=== PATIENT | male | born 1995 | race Caucasian/White ===

== ENCOUNTER 2021-02-07 20:00 | Outpatient (CLI) | payer OTHER, SELFPAY | END 2021-02-07 20:01 | disposition home or self-care (01) | PROVIDERS: Visit Provider Family Medicine | DX: R06.83 Snoring (principal); R53.83 Other fatigue; G47.33 Obstructive sleep apnea (adult) (pediatric) | CPT/HCPCS: 95810 ==

== ENCOUNTER 2022-01-30 20:00 | Outpatient (CLI) | payer OTHER, SELFPAY | END 2022-01-30 20:01 | disposition home or self-care (01) | LOC: SLEEP 01-31 08:37 | PROVIDERS: Visit Provider Family Medicine | DX: G47.33 Obstructive sleep apnea (adult) (pediatric) (principal) | CPT/HCPCS: 95811 ==

== ENCOUNTER 2022-02-14 20:57 | Emergency (ER) | payer OTHER, SELFPAY ==
[2022-02-14 21:01] VITALS: BP 167/118; PULSE 69; RESP 18; TEMP 36.9; O2SAT 99
[2022-02-14 21:20] LABS: Basophils % 0.5 %; Eosinophils # 0.2 10^3/uL (0.0-0.8); Eosinophils % 2.5 %; Hematocrit 48.5 % (42.0-52.0); Hemoglobin 16.6 g/dL (11.7-16.6); Lymphocytes # 1.3 10^3/uL (0.8-4.8); Mean Corpuscular HGB Conc 34.2 g/dL (30.0-36.0); Mean Corpuscular Hemoglobin 28.7 pg (28.0-34.0); Mean Corpuscular Volume 83.9 fl (80-94); Mean Platelet Volume 12.3 fL (7.4-10.4); Monocytes # 0.4 10^3/uL (0.2-0.9); Monocytes % 6.6 %; Neutrophils # 4.46 10^3/uL (1.8-7.7); Neutrophils % 70.1 %; Nucleated Red Blood Cells % 0 %; Platelet Count 174 10^3/cmm (130-400); Red Blood Count 5.78 10^6/uL (4.1-5.3); Red Cell Distribution Width 12.9 % (12.1-15.1); White Blood Count 6.4 10^3/uL (4.0-10.0)
[2022-02-14 21:39] LABS: Alanine Aminotransferase 19 U/L (0-41); Albumin Level 4.9 g/dL (3.5-5.2); Alkaline Phosphatase 94 IU/L (40-130); Aspartate Amino Transferase 17 U/L (0-40); Blood Urea Nitrogen 15 mg/dL (6-20); Calcium 9.7 mg/dL (8.5-10.5); Carbon Dioxide 27 mmol/L (22-29); Chloride 101 mmol/L (98-107); Globulin 2.5 g/dL (1.3-4.6); Glomerular Filtration Rate 80.9 mL/min (90-130); Glucose 185 mg/dL (65-115); Lipase 15 U/L (13-60); Osmolality Calculated 294 mOsm/kg (285-295); Sodium 139 mmol/L (136-145); Total Bilirubin 0.5 mg/dL (0.15-1.2); Total Protein 7.4 g/dL (6.6-8.7)
[2022-02-14 22:00] VITALS: BP 119/81
--- NOTE | 2022-02-14 22:14 | CTR_ITS ---
PROCEDURE INFORMATION: Exam: CT Abdomen And Pelvis Without Contrast Exam date and time: 02/14/2022 10:26 PM Age: 27 years old Clinical indication: Abdominal pain; Localized; Left lower quadrant (llq); Patient HX: C/O left flank/llq pain starting today. ; Additional info: Flank pain TECHNIQUE: Imaging protocol: Computed tomography of the abdomen and pelvis without contrast. Radiation optimization: All CT scans at this facility use at least one of these dose optimization techniques: automated exposure control; mA and/or kV adjustment per patient size (includes targeted exams where dose is matched to clinical indication); or iterative reconstruction. COMPARISON: No relevant prior studies available. RADIATION DOSE METRICS: Total DLP (mGy-cm): 1402.7 FINDINGS: Lungs: The lung bases appear unremarkable. Liver: The liver is unremarkable in appearance. Gallbladder and bile ducts: No calcified gallstones in the gallbladder. No gallbladder wall thickening. No pericholecystic fluid. No biliary dilatation. Pancreas: The pancreas is normal in appearance. No pancreatic duct dilatation. Spleen: The spleen is normal in size and appearance. Adrenal glands: The adrenal glands appear within normal limits. Kidneys and ureters: Mild left hydroureteronephrosis. There is a 4 mm distal left ureteral calculus. Findings are consistent with left obstructive uropathy. Right kidney and right ureter are normal in appearance. Stomach and bowel: No acute gastric abnormality demonstrated. The small bowel is unremarkable as demonstrated. No acute abnormality/inflammatory change of the colon. Appendix: The appendix is normal in appearance. No evidence of appendicitis. Intraperitoneal space: No pneumoperitoneum. No significant fluid collection. Vasculature: No abdominal aortic aneurysm. Lymph nodes: No pathologically enlarged lymph nodes are demonstrated. Urinary bladder: Urinary bladder is almost completely empty. The bladder appears unremarkable as demonstrated. Reproductive: The prostate and the scrotal contents appear unremarkable as demonstrated. Bones/joints: Unremarkable. No acute osseous abnormality. Soft tissues: The soft tissues appear unremarkable. CT/CT kidney stone [id number] IMPRESSION: Mild left hydroureteronephrosis. There is a 4 mm distal left ureteral calculus. Findings are consistent with left obstructive uropathy.
--- NOTE | 2022-02-14 22:19 | W.ED.MALEGU ---
HPI - Male Genitourinary General: Chief complaint: Back Pain/Injury Stated complaint: Severe back pain-lower left Time Seen by Provider: 02/14/22 22:10 Source: patient Mode of arrival: ambulatory Limitations: no limitations History of Present Illness: 27-year-old male who states that he had an episode of left flank pain last week that lasted a short amount of time he states that he had returned and then this morning started having pain at 10 and is got much worsening. He states pain is severe in nature rates it a 9 out of 10 he has had nausea with the pain denies any vomiting he denies any worsening improving factors states he feels like the pain is just on the inside no history of kidney stones. Associated symptoms: Reports nausea; Deny dysuria or vomiting Review of Systems Const: Denies: fever(s), chills, body aches or change in appetite Eyes: Denies: blurry vision or eye discomfort ENMT: Denies: throat pain or dental pain Card: Denies: chest pain Resp: Denies: dyspnea GI: Reports: nausea; Denies: abdominal pain, vomiting or diarrhea : Reports: flank pain and difficulty urinating; Denies: dysuria Musc: Denies: neck pain or back pain Skin/Breast: Denies: rash Neuro: Denies: headache(s) Psych: Denies: depression Jesús/Lymph: Denies: easy bruising All/Imm: Denies: urticaria PFSH ED PFSH: Medical History (Updated 02/14/22 @ 23:16 by Arnie Rea MD) Hypertension Social History (Updated 02/14/22 @ 22:20 by Arnie Rea MD) Substance/Drug Use: never Physical Exam Const: COMMON NORMALS: no acute distress, patient oriented x3 and healthy appearing HENMT: COMMON NORMALS: normocephalic and atraumatic HEAD & SCALP: normocephalic and atraumatic Eye: COMMON NORMALS: Equal, round and reactive pupils present and EOMs intact bilaterally PUPIL: Yes Equal, round and reactive pupils present Neck/C-Spine: COMMON NORMALS: full ROM and supple Chest: COMMONS NORMALS: normal inspection of the chest and normal palpation of entire chest wall Resp: COMMON NORMALS: normal respiratory effort, No retractions, No use of accessory muscles and clear to auscultation bilaterally AUSCULTATION: clear to auscultation bilaterally Cardio: COMMON NORMALS: regular rate, regular rhythm and No murmurs present (Cardio) RATE: regular rate RHYTHM: regular rhythm GI: COMMON NORMALS: Normal to inspection, nondistended, normoactive bowel sounds present, Soft to palpation, non-tender and no masses PALPATION: Yes Soft to palpation Extremity: COMMON NORMALS: normal to inspection and full ROM Neuro: COMMON NORMALS: patient oriented x3, moves all extremities and no focal motor deficits Psych: COMMON NORMALS: mental status grossly normal, Normal thought process present and cooperative THOUGHT PROCESS: Normal thought process present Skin: COMMON NORMALS: no rashes or lesions noted and no wounds GENERAL SKIN EXAM: no rashes or lesions noted Course Vital Signs: Vital signs: Vital Signs Temperature 98.5 F 02/14/22 21: Pulse Rate 69 02/14/22 21:01 Respiratory Rate 16 02/14/22 22:41 Blood Pressure 167/118 02/14/22 21:01 Pulse Oximetry 98 02/14/22 22:41 MDM - Male Medical Decision Making Patient presents here with kidney stone will discharge with a strainer his pain is much improved here he is to follow-up with urology should be able passed a stone at home. Lab Data : 02/14/22 21:09 02/14/22 21:09 Radiology Impressions Abdomen/Pelvis CT 02/14/22 22:14 IMPRESSION: Mild left hydroureteronephrosis. There is a 4 mm distal left ureteral calculus. Findings are consistent with left obstructive uropathy. Laboratory Results WBC 6.4 10^3/uL (4.0-10.0) 02/14/22 21:09 RBC 5.78 10^6/uL (4.1-5.3) H 02/14/22 21:09 Hgb 16.6 g/dL (11.7-16.6) 02/14/22 21:09 Hct 48.5 % (42.0-52.0) 02/14/22 21:09 MCV 83.9 fl (80-94) 02/14/22 21:09 MCH 28.7 pg (28.0-34.0) 02/14/22 21:09 MCHC 34.2 g/dL (30.0-36.0) 02/14/22 21:09 RDW 12.9 % (12.1-15.1) 02/14/22 21:09 Plt Count 174 10^3/cmm (130-400) 02/14/22 21:09 MPV 12.3 fL (7.4-10.4) H 02/14/22 21:09 Neut % (Auto) 70.1 % 02/14/22 21:09 Lymph % (Auto) 20.0 % 02/14/22 21:09 Maries % (Auto) 6.6 % 02/14/22 21:09 Eos % (Auto) 2.5 % 02/14/22 21:09 Baso % (Auto) 0.5 % 02/14/22 21:09 Neut # (Auto) 4.46 10^3/uL (1.8-7.7) 02/14/22 21:09 Lymph # (Auto) 1.3 10^3/uL (0.8-4.8) 02/14/22 21:09 Maries # (Auto) 0.4 10^3/uL (0.2-0.9) 02/14/22 21:09 Eos # (Auto) 0.2 10^3/uL (0.0-0.8) 02/14/22 21:09 Baso # (Auto) 0.0 10^3/uL (0.0-0.1) 02/14/22 21:09 Nucleated RBC % (auto) 0 % 02/14/22 21:09 Nucleated RBCs # 0.0 /100WBC 02/14/22 21:09 Sodium 139 mmol/L (136-145) 02/14/22 21:09 Potassium 4.0 mmol/L (3.5-5.1) 02/14/22 21:09 Chloride 101 mmol/L (98-107) 02/14/22 21:09 Carbon Dioxide 27 mmol/L (22-29) 02/14/22 21:09 Anion Gap 15.0 (5-19) 02/14/22 21:09 BUN 15 mg/dL (6-20) 02/14/22 21:09 Creatinine 1.1 mg/dL (0.7-1.2) 02/14/22 21:09 GFR Calculation 80.9 mL/min (90-130) L 02/14/22 21:09 Glucose 185 mg/dL (65-115) H 02/14/22 21:09 Calculated Osmolality 294 mOsm/kg (285-295) 02/14/22 21:09 Calcium 9.7 mg/dL (8.5-10.5) 02/14/22 21:09 Total Bilirubin 0.5 mg/dL (0.15-1.2) 02/14/22 21:09 AST 17 U/L (0-40) 02/14/22 21:09 ALT 19 U/L (0-41) 02/14/22 21:09 Alkaline Phosphatase 94 IU/L (40-130) 02/14/22 21:09 Total Protein 7.4 g/dL (6.6-8.7) 02/14/22 21:09 Albumin 4.9 g/dL (3.5-5.2) 02/14/22 21:09 Globulin 2.5 g/dL (1.3-4.6) 02/14/22 21:09 Lipase 15 U/L (13-60) 02/14/22 21:09 Discharge Plan Discharge Patient Disposition: Home Clinical Impression: Kidney stone on left side Prescriptions: New hydrocodone-acetaminophen 5-325 mg tablet 1 tab PO Q6H PRN (Reason: pain) Qty: 14 0RF ondansetron 4 mg tablet,disintegrating 4 mg PO Q6H PRN (Reason: nausea and vomiting) Qty: 14 0RF Discharge Orders: Discharge ED (Routine); Ordered 02/14/22 Ordered By: Arnie Rea Referrals: Rodger Alonzo MD [Physician] - 1-3 days Discharge Diet: Advance as tolerated Discharge Activity: Resume usual activity Patient Instructions: Kidney Stones (ED), How to Strain Your Urine (ED), Opioid Safety Coding Level of Care Code ED Nuclear Criticality Safety Engineer for Chg Fwd Exam Comprehensive
[2022-02-14 22:41] VITALS: RESP 16; O2SAT 98
[2022-02-14] MEDS: ondansetron 2 mg/ML SDV 2 mL 4 MG IVP (22:41)
[2022-02-14] MEDS: HYDROmorphone 1 mg/mL INJ 1 mL IVP (22:41)
[2022-02-14] MEDS: sodium chloride 0.9% 1,000 ML 999 ML IV (22:42)
[2022-02-14 22:50] VITALS: BP 148/78; PULSE 64; O2SAT 97
[2022-02-14 23:00] VITALS: BP 138/79; PULSE 58; O2SAT 96
[2022-02-14] MEDS: HYDROcodone-acetaminophen 5-325 mg Tablet 2 TAB PO (23:39)
[2022-02-14 23:58] VITALS: BP 131/63; PULSE 60; RESP 16; O2SAT 96
--- NOTE | 2022-02-15 12:53 | DCPLANNER ---
Addendum entered by Kera Wong 02/23/22 07:31: Patient had a follow up appointment scheduled for 02.22.[address] Alonzo - patient did attend appointment. Original Note: process manager had message to schedule a follow up appointment for patient with urology. process manager sent patients information to the front office staff at urology. Patients information will be printed and reviewed. Clinic will call patient with appointment information.
== END 2022-02-14 23:50 | disposition home or self-care (01) ==
PROVIDERS: Emergency Medicine; Emergency Provider Emergency Medicine
DX: N20.0 Calculus of kidney (principal)
CPT/HCPCS: 74176; 80053; 83690; 85025; 96374; 96375; 99284; J1170; J2405; J7030

== ENCOUNTER 2022-02-22 07:04 | Outpatient (CLI) | payer OTHER, SELFPAY ==
--- NOTE | 2022-02-22 07:30 | XR_ITS ---
WS: [id number] Exam: XR KUB [id number] Date/Time of Exam: 02/22/2022 7:30 AM Reason For Exam: STONES No bowel obstruction or free air. Visualized organ margins are intact. Bony structures appear normal. 2 mm nonspecific left pelvic calcification noted. XR/XR KUB [id number] IMPRESSION: 1. No acute abdominal finding.
== END 2022-02-22 07:05 | disposition home or self-care (01) ==
PROVIDERS: Visit Provider Urology
DX: N20.0 Calculus of kidney (principal)
CPT/HCPCS: 74018; 99202

== ENCOUNTER 2022-02-28 09:34 | Day surgery (SDC) | payer OTHER, SELFPAY ==
--- NOTE | 2022-02-28 | SCC_ITS ---
Procedure done: 1. Cystoscopy, LEFT retrograde ureteropyelogram 2. Left ureteroscopy stone manipulation stent placement 41.6 seconds of fluoroscopic guidance, for a cumulative dose of 8.57 mGy, was provided to Dr. Alonzo by the radiology department. C-arm images of the abdomen were saved for the patient's permanent record. [facility]
--- NOTE | 2022-02-28 06:38 | W.PM.OPSUD ---
Surgery/Procedure H&P Update DATE OF PROCEDURE: February 28, 2022 DATE H&P PERFORMED: 02/22/22 H&P UPDATE INFORMATION: I have reviewed H&P completed within last 30 days, I have examined patient prior to procedure, No changes to prior documentation and H&P is in [facility] EMR on date indicated CHANGES TO PREVIOUS DOCUMENTATION: Unaware of having passed the stone. Had pain last night. Had experienced 4 or more days without pain prior to last night's increasing symptoms. PLANNED PROCEDURE: Operation Date: 02/28/22 11:05 Proposed Procedures p CYSTOSCOPY LEFT RETROGRADE URETEROSCOPY LASER STENT [id number] [facility] 26 [address]81,N20.1,N23(Not Applicable) - Rodger Alonzo MD s Retrograde Pyelogram(Left) - Rodger Alonzo MD s Laser Lithotripsy(Left) - Rodger Alonzo MD s Ureteral Stent Placement(Left) - Rodger Alonzo MD
--- NOTE | 2022-02-28 09:59 | SC_ITS ---
WS: [id number] C-arm fluoroscopy for left ureteral stent placement, 02/28/2022 Clinical Data: Left ureteral calculus Comparison: None. Findings: Dr. Alonzo inserted a left ureteral stent. SC/C-arm FL for Urology Impression: Left ureteral stent.
--- NOTE | 2022-02-28 09:59 | XR_ITS ---
WS: [id number] KUB, AP view, 02/28/2022 Clinical Data: Refractory left distal ureteral stone Comparison: KUB, 02/22/2022. Findings: No abnormal intraabdominal masses or calcifications are seen. There is no dilatated small bowel or ev idence of obstruction. The small left 2 pelvic calcification has not changed. There is a slight dextroscoliosis. XR/XR KUB [id number] Impression: Negative KUB.
[2022-02-28 10:32] VITALS: BMI 28.7
[2022-02-28] MEDS: sodium chloride 0.9% 1,000 ML 30 ML IV (10:49)
[2022-02-28] MEDS: levofloxacin-dextrose 5 % 500 MG/100 ML PREMIX 100 MG IV (11:02)
--- NOTE | 2022-02-28 11:31 | ANES.PREANE2 ---
Pre-Anesthetic Assessment Height/Weight: Height 1.8 m Weight 93.44 kg Preop Diagnosis: Refractory left distal ureteral stone/renal colic Operation Date: 02/28/22 11:05 Proposed Procedures p CYSTOSCOPY LEFT RETROGRADE URETEROSCOPY LASER STENT 04646 [facility] 26 [address]6661,N20.1,N23(Not Applicable) - Rodger Alonzo MD s Retrograde Pyelogram(Left) - MD gilma Alonzo Laser Lithotripsy(Left) - MD gilma Alonzo Ureteral Stent Placement(Left) - Rodger Alonzo MD Familial anesthetic complications: None Was Beta Corey taken within 24 hours: N/A Was Clonidine taken within 24 hours: N/A Last intake: Intake Last Liquid Date 02/27/22 Last Liquid Time 17:00 Last Solid Date 02/27/22 Last Solid Time 17:00 Social Tobacco and No alcohol Exam alert, oriented x 3, clear to auscultation bilaterally and regular rate & rhythm Airway Submandibular: within normal limits Cervical ROM: within normal limits Mallampati: Class II Dentition: full Comments: Comments: vasquez CV/HEM Hypertension Anesthetic Plan ASA status: 2 Anesthesia: General Medications/Allergies Home Medications Medication Instructions Recorded Confirmed Last Taken Type ondansetron 4 mg disintegrating 4 mg PO Q6H PRN #14 tab 02/14/22 02/28/22 02/27/22 Rx tablet cholecalciferol (vitamin D3) 10 10 mcg PO DAILY 02/22/22 02/28/22 Unknown History mcg (400 unit) capsule hydrochlorothiazide 25 mg tablet 12.5 mg PO DAILY tab 02/22/22 02/28/22 02/27/22 History hydrocodone 5 mg-acetaminophen 325 1 tab PO Q6H PRN 3 Days #20 tab 02/22/22 02/28/22 02/27/22 Rx mg tablet tamsulosin 0.4 mg capsule 0.4 mg PO QDAY #14 cap 02/22/22 02/28/22 02/27/22 Rx Allergies Allergy/AdvReac Type Severity Reaction Status Date / Time No Known Allergies Allergy Verified 02/28/22 10:26 Current Medications Generic Name Dose Route Start Last Admin Trade Name Freq PRN Reason Stop Dose Admin Sodium Chloride 1,000 mls @ 30 mls/hr 02/28/22 10:00 02/28/22 10:49 Sodium Chloride 0.9% IV 03/01/22 09:59 30 mls/hr .Q24H SADE Administration PFSH Anesthesia Medical History (Updated 02/22/22 @ 08:23 by Rodger Alonzo MD) Hypertension Family History (Updated 02/22/22 @ 07:52 by Marissa Givens LPN) Father Hypertension Diabetes Stroke CAD (coronary artery disease) Mother Hypertension CAD (coronary artery disease) Social History (Updated 02/22/22 @ 07:53 by Marissa Givens LPN) Smoking and tobacco status: current every day smoker Alcohol intake: current Alcohol intake frequency: few times a month Marital status: Current occupational status: employed History of recent travel: No Data Anesthesia Cardiac Studies: No Data to Display
--- NOTE | 2022-02-28 11:44 | PM.OP ---
Operative Report Date of procedure: February 28, 2022 Pre-op diagnosis: Refractory left distal ureteral stone/renal colic Post-op diagnosis: Refractory left distal ureteral stone/renal colic Procedure done: 1. Cystoscopy, LEFT retrograde ureteropyelogram 2. Left ureteroscopy stone manipulation stent placement Specimens removed/disposition: Stone Pathology: Stone Surgeon: Clinton Anesthesia: General Complications: None Findings: Stone in the expected position There was a very narrowed area distal to the stone the required high-pressure dilation in order to get access with the scope. The stone was actually small enough to withdraw over the grasping forcep once the dilation was completed Brief History: After routine preoperative evaluation examination and obtaining of informed consent he was taken to the operating suite on 02/28/2022 where general anesthesia was administered without difficulty after appropriate timeout was performed, SCDs confirmed to be functioning, preoperative antibiotics administered, beta-shanna protocol confirmed. Prepped and draped in the usual sterile fashion in dorsolithotomy position paying careful attention to avoiding pressure points. 21 Swedish cystoscope with 30 degree lens was introduced into the urethra meatus and advanced into the bladder under videoscopy. The bladder was systematically examined and found to be within normal limits. No stone was seen. An 8 Swedish cone-tip catheter was intubated into the left ureteral orifice for left retrograde ureteropyelogram which demonstrated narrowed distal ureter, filling defect consistent with a stone, and ureter proximal to the stone with moderate dilation. The stone was located in the expected position based on CT and prior KUBs. A flexible tip guidewire was then easily advanced up the left ureter bypassing the stone curling in the area of the upper pole calyx. The distal ureter was then dilated with a 15 Swedish 4 cm balloon. There was a distinctly narrowed area that required almost 20 jan of pressure in order to dilate for the full diameter of the balloon. The pressure was reduced to 4 jan and remained in place for about 4 minutes at which point the balloon was deflated and removed. The wire was secured to the drapes as a safety wire and the 7 Swedish offset semirigid ureteroscope was easily advanced up the right ureter beyond the area of previous narrowing to the stone which was secured in grasping forceps and removed with absolutely no tension. The stone was dropped into the bladder. The scope was passed again no additional stone fragments were seen. Because of the high-pressure dilation required it was decided to leave a stent indwelling. The cystoscope was then backloaded over the guidewire and a 6 Swedish by 30 cm double-pigtail stent was advanced over the guidewire through the cystoscope into appropriate position as confirmed via fluoroscopy and cystoscopy. Stent was confirmed to be draining. The stone was flushed from the bladder. It was sent for pathologic evaluation. The bladder was drained and the procedure was completed. He tolerated the procedure well without complications and was awakened in the operating room and returned to the recovery room in stable condition. PLANS: 1. Anticipate discharge from outpatient surgery 2. Follow-up next week for cystoscopy and stent removal. He will need some time of healing because of the distinctly narrowed area requiring high-pressure dilation.
[2022-02-28 11:55] VITALS: BP 106/72; PULSE 53; RESP 18; TEMP 36.2; O2SAT 96
[2022-02-28 12:00] VITALS: BP 120/72; PULSE 70; RESP 16; O2SAT 99
[2022-02-28 12:05] VITALS: BP 130/81; PULSE 72; RESP 16; O2SAT 96
[2022-02-28 12:10] VITALS: BP 128/81; PULSE 70; RESP 16; TEMP 36.3; O2SAT 96
[2022-02-28 12:25] VITALS: BP 132/76; PULSE 78; RESP 18; TEMP 36.8; O2SAT 96
[2022-02-28 12:58] VITALS: BP 147/94; PULSE 62; RESP 18; O2SAT 99
--- NOTE | 2022-02-28 14:16 | ANE.PACU2 ---
Inpatient post-anesthesia follow up: Airway intact: Yes Vital signs: Temperature 98.3 F Pulse Rate 62 Respiratory Rate 18 Blood Pressure 147/94 Pulse Oximetry 99 Oxygen Delivery Me thod Room Air Oxygen Flow Rate 6 Fraction of Inspir ed Oxygen Hydration adequate: Yes Nausea and vomiting: No Pain level: 2 Mental status: Baseline
[2022-03-04 10:57] LABS: Stone Source LEFT URETER
== END 2022-02-28 13:07 | disposition home or self-care (01) ==
PROVIDERS: PCP Family Medicine; Visit Provider Urology
PROC: 0TJB8ZZ Inspection of Bladder, Via Natural or Artificial Opening Endoscopic (ICD-10-PCS; CPT 52000; principal; 2022-02-28 10:45)
PROC: (CPT 74420; 2022-02-28 10:45)
PROC: (CPT 50605; 2022-02-28 10:45)
PROC: (CPT 52332; 2022-02-28 10:45)
DX: N20.1 Calculus of ureter (principal); N23 Unspecified renal colic; I10 Essential (primary) hypertension; F17.200 Nicotine dependence, unspecified, uncomplicated; Z82.49 Family history of ischemic heart disease and other diseases of the circulatory system; Z83.3 Family history of diabetes mellitus; Z82.3 Family history of stroke
CPT/HCPCS: 52332; 52352; 74018; 76000; 82365; 88300; C2625; J1100; J1956; J2250; J2405; J2704; J3010; J7030

== ENCOUNTER → 2022-03-09 07:21 | Outpatient (BNVA) | payer OTHER, SELFPAY | PROVIDERS: PCP Family Medicine; Visit Provider Urology | DX: N20.1 Calculus of ureter (principal); Z96.0 Presence of urogenital implants | CPT/HCPCS: 52310; 81003 ==

== ENCOUNTER 2022-10-25 15:20 | Outpatient (CLI) | payer OTHER, SELFPAY ==
--- NOTE | 2022-10-25 16:07 | XR_ITS ---
WS: [id number] XR KUB [id number] REASON FOR EXAM: Kidney Stone FINDINGS: No urinary tract calculi are identified. No other abdominal abnormality is noted. XR/XR KUB [id number] IMPRESSION: No urinary tract calculi identified.
== END 2022-10-25 15:21 | disposition home or self-care (01) ==
PROVIDERS: PCP Family Medicine; Visit Provider Urology
DX: N20.0 Calculus of kidney (principal)
CPT/HCPCS: 74018; 81003; 99213